=== PATIENT | female | born 1980 | race Two or more races ===

== ENCOUNTER 2016-11-23 10:14 | Inpatient (IN) | payer OTHER ==
[~2016-11-23] VITALS: Ht 162.6 cm; Wt 90.7 kg
[~2016-11-23 10:14] MED LIST: IBUP-1060 PO; OXYC-323 PO
[2016-11-23 11:21] LABS: BASO % 1 % (0-3); EOS % 1 % (0-3); HEMATOCRIT 34.5 % (36.0-47.0); HEMOGLOBIN 11.7 g/dL (12.0-15.5); LYMPH # 1.7 x10^3/uL (1.0-4.8); LYMPH % 24 % (24-48); MEAN CORPUSCULAR HEMOGLOBIN 31 pg (25-35); MEAN CORPUSCULAR HGB CONC 34 g/dL (31-37); MEAN CORPUSCULAR VOLUME 91 fL (79-100); MONO % 9 % (0-9); NEUT % 66 % (31-73); PLATELET COUNT 231 x10^3/uL (140-400); RED BLOOD COUNT 3.78 x10^6/uL (3.50-5.40); RED CELL DISTRIBUTION WIDTH 13.4 % (11.5-14.5); WHITE BLOOD COUNT 7.2 x10^3/uL (4.0-11.0)
[2016-11-23 11:34] LABS: CALCIUM 8.7 mg/dL (8.5-10.1); CREATININE 0.8 mg/dL (0.6-1.0); GFR 80.3; POTASSIUM 3.9 mmol/L (3.5-5.1)
[2016-11-23 11:39] LABS: ALBUMIN 3.8 g/dL (3.4-5.0); ALBUMIN/GLOBULIN RATIO 0.9 (1.0-1.7); TOTAL BILIRUBIN 0.6 mg/dL (0.2-1.0)
[2016-11-23 11:49] LABS: GLUCOSE,URINE NEGATIVE (NEG)
[2016-11-23 11:50] LABS: BILIRUBIN,URINE NEGATIVE (NEG)
[2016-11-23 11:51] LABS: BACTERIA,URINE FEW /HPF (0-FEW); NITRITE,URINE NEGATIVE (NEG); PROTEIN,URINE NEGATIVE (NEG-TRACE); RBC,URINE RARE /HPF (0-2); SQUAMOUS EPITHELIAL CELL,UR FEW /LPF; WBC,URINE OCC /HPF (0-4)
--- NOTE | 2016-11-23 12:28 | RAD ---
OB ultrasound less than 14 weeks to include transabdominal and transvaginal imaging 11/23/2016 Clinical history: First trimester with vaginal spotting. Technique: A real-time ultrasound examination of the pelvis was performed using the distended urinary bladder as a sonographic window. Additionally in an attempt to better evaluate the uterus and adnexa, a transvaginal ultrasound study was performed. Multiple images were obtained. Findings: The uterus is within normal limits in size and echogenicity. It measures 12 x 8 x 5 cm in longitudinal, transverse, and AP dimensions. No gestational sac is seen within the uterus. The endometrial echo complex measures 1.4 cm in thickness which is within normal limits. The right ovary is slightly prominent. The right ovary measures 5.8 x 5.1 x 4.7 cm in size. No focal abnormality is seen. The left ovary is normal in size and echogenicity. The Left ovary measures 3.7 x 2.2 x 2.4 cm in size. A small amount of free fluid is seen within the pelvic cul-de-sac. Impression: 1. No IUP is seen. 2. A small amount of free fluid is seen within the pelvis. 3. These ultrasound findings could be seen with a very early IUP, missed spontaneous or possibly due to an occult ectopic . Clinical correlation and correlation with the patient's serial beta hCG level is recommended.
[2016-11-23] MEDS ORDERED: METHOTREXATE SODIUM 50 MG/2 ML VIAL IM ONE ×2 (14:00→19:00)
--- NOTE | 2016-11-23 14:33 | PHYS DOC ---
Past Medical History Past Medical History: , Other Additional Past Medical Histor: ruptured ectopic Past Surgical History: , Tubal ligation, Other Additional Past Surgical Histo: BILAT TUBAL REVERSAL, ruptured ectopic Alcohol Use: None Drug Use: None Adult General Chief Complaint Chief Complaint: VAGINAL BLEEDING [facility] Patient is a 36 year old female 12 para 4, 7 miscarriages, 1 miscarriage was as result of an ectopic that ruptured who presents today with vaginal bleeding that has been going on for the last 2 weeks, patient states she is approximately 5 weeks . Patient states she notices trace amount of blood whenever she wipes herself for two weeks. She is also complaining of slight right flank pain that she states occurs only when she moves [id number]. Patient states she's been following up with Dr. Sanchez her CLIENT SUPPORT MANAGER. She states she saw Dr. Sanchez on Tuesday last week and he did an ultrasound in the office and informed her he could not find the , she states her beta-hCG was checked and was also low compared to normal values for [address] She states Dr[address] Sanchez informed her he'll be monitoring her lab findings as well as closely. She presents today stating she would like to be evaluated again. She denies this bleeding being more than what it's been for the last 2 weeks. Review of Systems Review of Systems Constitutional: Denies fever or chills [] Eyes: Denies change in visual acuity, redness, or eye pain [] HENT: Denies nasal congestion or sore throat [] Respiratory: Denies cough or shortness of breath [] Cardiovascular: No additional information not addressed in [facility] [] GI: Vaginal bleeding in . Right flank pain. : Denies dysuria or hematuria [] Musculoskeletal: Denies back pain or joint pain [] Integument: Denies rash or skin lesions [] Neurologic: Denies headache, focal weakness or sensory changes [] Endocrine: Denies polyuria or polydipsia [] Current Medications Current Medications Current Medications Medications (Trade) Dose Ordered Sig/Kin Start Time Stop Time Status Last Admin Dose Admin Methotrexate 100 mg 1X ONCE 11/23/16 14:00 11/23/16 14:17 DC Allergies Allergies Allergies Coded Allergies Type Severity Reaction Last Updated Verified No Known Drug Allergies 01/16/15 No Physical Exam Physical Exam Constitutional: Well developed, well nourished, no acute distress, non-toxic appearance. [] HENT: Normocephalic, atraumatic, bilateral external ears normal, oropharynx moist, no oral exudates, nose normal. [] Eyes: PERRLA, EOMI, conjunctiva normal, no discharge. [] Neck: Normal range of motion, no tenderness, supple, no stridor. [] Cardiovascular:Heart rate regular rhythm, no murmur [] Lungs & Thorax: Bilateral breath sounds clear to auscultation [] Abdomen: Bowel sounds normal, soft, no tenderness, no masses, no pulsatile masses. [] Pelvic exam External pelvic region appears normal, cervix could not be well-visualized. Trace amount of bright red blood in the vaginal vault, no CMT, no adnexal tenderness. Skin: Warm, dry, no erythema, no rash. [] Back: No tenderness, no CVA tenderness. [] Extremities: No tenderness, no cyanosis, no clubbing, ROM intact, no edema. [] Neurologic: Alert and oriented X 3, normal motor function, normal sensory function, no focal deficits noted. [] Psychologic: Affect normal, judgement normal, mood normal. [] Current Patient Data Vital Signs Vital Signs Date Time Temp Pulse Resp B/P Pulse Ox O2 Delivery O2 Flow Rate FiO2 11/23/16 10:16 97.9 75 16 129/82 100 Room Air 97.9 Lab Values Laboratory Tests Test 11/23/16 09:51 11/23/16 10:30 11/23/16 10:40 POC Urine HCG, Qualitative Hcg positive (Negative) Urine Collection Type Void Urine Color Yellow Urine Clarity Clear Urine pH 6.0 Urine Specific [place] 1.025 Urine Protein Negativemg/dL (NEG-TRACE) Urine Glucose (UA) Negativemg/dL (NEG) Urine Ketones (Stick) Negativemg/dL (NEG) Urine Blood Large (NEG) Urine Nitrite Negative (NEG) Urine Bilirubin Negative (NEG) Urine Urobilinogen Dipstick 1.0mg/dL (0.2 mg/dL) Urine Leukocyte Esterase Negative (NEG) Urine RBC Rare/HPF (0-2) Urine WBC Occ/HPF (0-4) Urine Squamous Epithelial Cells Few/LPF Urine Bacteria Few/HPF (0-FEW) Urine Mucus Mod/LPF White Blood Count 7.2x10^3/uL (4.0-11.0) Red Blood Count 3.78x10^6/uL (3.50-5.40) Hemoglobin 11.7g/dL (12.0-15.5) L Hematocrit 34.5% (36.0-47.0) L Mean Corpuscular Volume 91fL (79-100) Mean Corpuscular Hemoglobin 31pg (25-35) Mean Corpuscular Hemoglobin Concent 34g/dL (31-37) Red Cell Distribution Width 13.4% (11.5-14.5) Platelet Count 231x10^3/uL (140-400) Neutrophils (%) (Auto) 66% (31-73) Lymphocytes (%) (Auto) 24% (24-48) Monocytes (%) (Auto) 9% (0-9) Eosinophils (%) (Auto) 1% (0-3) Basophils (%) (Auto) 1% (0-3) Neutrophils # (Auto) 4.7x10^3uL (1.8-7.7) Lymphocytes # (Auto) 1.7x10^3/uL (1.0-4.8) Monocytes # (Auto) 0.7x10^3/uL (0.0-1.1) Eosinophils # (Auto) 0.1x10^3/uL (0.0-0.7) Basophils # (Auto) 0.0x10^3/uL (0.0-0.2) Maternal Serum HCG Beta Subunit 1661mIU/mL (0-6) H Sodium Level 140mmol/L (136-145) Potassium Level 3.9mmol/L (3.5-5.1) Chloride Level 104mmol/L (98-107) Carbon Dioxide Level 27mmol/L (21-32) Anion Gap 9 (6-14) Blood Urea Nitrogen 10mg/dL (7-20) Creatinine 0.8mg/dL (0.6-1.0) Estimated GFR (Cockcroft-Gault) 80.3 BUN/Creatinine Ratio 13 (6-20) Glucose Level 90mg/dL (70-99) Calcium Level 8.7mg/dL (8.5-10.1) Total Bilirubin 0.6mg/dL (0.2-1.0) Aspartate Amino Transferase (AST) 13U/L (15-37) L Alanine Aminotransferase (ALT) 16U/L (14-59) Alkaline Phosphatase 80U/L (46-116) Total Protein 8.0g/dL (6.4-8.2) Albumin 3.8g/dL (3.4-5.0) Albumin/Globulin Ratio 0.9 (1.0-1.7) L Lipase 127U/L (73-393) Laboratory Tests 11/23/16 10:40 Laboratory Tests 11/23/16 10:40 Microbiology 11/23/16 Wet Prep - Final, Complete EKG EKG [] Radiology/Procedures Radiology/Procedures []PROCEDURE: OB <14 WKS W/TV OB ultrasound less than 14 weeks to include transabdominal and transvaginal imaging 11/23/2016 Clinical history: First trimester with vaginal spotting. Technique: A real-time ultrasound examination of the pelvis was performed using the distended urinary bladder as a sonographic window. Additionally in an attempt to better evaluate the uterus and adnexa, a transvaginal ultrasound study was performed. Multiple images were obtained. Findings: The uterus is within normal limits in size and echogenicity. It measures 12 x 8 x 5 cm in longitudinal, transverse, and AP dimensions. No gestational sac is seen within the uterus. The endometrial echo complex measures 1.4 cm in thickness which is within normal limits. The right ovary is slightly prominent. The right ovary measures 5.8 x 5.1 x 4.7 cm in size. No focal abnormality is seen. The left ovary is normal in size and echogenicity. The Left ovary measures 3.7 x 2.2 x 2.4 cm in size. A small amount of free fluid is seen within the pelvic cul-de-sac. Impression: 1. No IUP is seen. 2. A small amount of free fluid is seen within the pelvis. 3. These ultrasound findings could be seen with a very early IUP, missed spontaneous or possibly due to an occult ectopic . Clinical correlation and correlation with the patient's serial beta hCG level is recommended. DICTATED and SIGNED BY: REID POLLARD MD DATE: 11/23/16 3589 CC: PEACE SANCHEZ MD; FAUSTO CHEATHAM APRN; NON,STAFF ~ Course & Med Decision Making Course & Med Decision Making Pertinent Labs and Imaging studies reviewed. (See chart for details) Patient is in the ED with vaginal bleeding in . She is a 10, Para 4,7 miscarriages (with one ruptured ectopic with removal of left fallopian tube). She states she has had vaginal bleeding for 2 weeks. She has already been seen by Dr. Sanchez who has been following up with her closely. She was seen by Dr. Sanchez on Tuesday. They did an ultrasound, patient states they could not find the baby. She presents today stating she is still bleeding. Positive urine hCG, beta-hCG 1661. Blood group O+. Hemoglobin 11.7 hematocrit 34.5 wet prep is positive for bacterial vaginosis, this should be followed up as an inpatient. OB ultrasound no IUP could be seen, small amount of free fluid is seen within the left pelvic cul-de-sac, radiologist mentions this ultrasound could be seen in a very early IUP, missed spontaneous or possibly due to occult ectopic 13:[address] Sanchez patient's CLIENT SUPPORT MANAGER. He stated this patient could have a possible ectopic . He states has been following up closely with patient and her Beta HCG were not going up as they should. He states we can give patient 2 choices, choice #1 patient can be given methotrexate and discharge. choice #2 patient can stay in the hospital and he will perform a procedure on patient he requested patient to be informed she might possibly lose her right fallopian tube which is her only fallopian tube if her procedures done. Information was given to patient. Patient herself states she has lost multiple pregnancies and would like to be given methotrexate and go home. 14:20 consulted with my supervising physician Dr. Hudson who came and talked to patient at length and recommended patient to stay in the hospital due to the risk of receiving methotrexate including the risk of ruptured ectopic. He felt this patient is a high risk especially with history of ruptured ectopic to be given methotrexate and be discharged. He felt the CLIENT SUPPORT MANAGER needed to come and talked to patient as well as administered methotrexate if he wants patient to have it otherwise we do not administer this medication in the ED. Patient accepted to stay. I did put a call out to Dr. Sanchez again. He has not called back yet. Dragon Disclaimer Dragon Disclaimer This electronic medical record was generated, in whole or in part, using a voice recognition dictation system. Departure Departure Impression: Primary Impression: Threatened Additional Impressions: Bacterial vaginosis Abdominal pain during Disposition: ADMITTED INPATIENT Condition: STABLE Referrals: PEACE SANCHEZ MD (PCP) Problem Qualifiers Additional Impressions: Abdominal pain during Trimester: first trimester Qualified Code: O26.891 - Other specified related conditions, first trimester MEREDITHRajiFAUSTO YOO Nov 23, 2016 14:33
[2016-11-23] MEDS ORDERED: ONDANSETRON PF 4 MG/2 ML VIAL. IV PRN (15:30)
[2016-11-23] MEDS ORDERED: MORPHINE SULFATE 2 MG/ML DISP.SYRIN. IV PRN (15:30)
[2016-11-23] MEDS ORDERED: IV NORMAL SALINE 1000ML BAG 1,000 ML IV ONE (15:30)
[2016-11-23 16:45] VITALS: BP 117/66
[2016-11-23 21:20] VITALS: BP 124/85
--- NOTE | 2016-12-27 18:50 | PDOC1 ---
OB - History Hx of Present Care: Limited Care Ultrasounds: Abnormal US findings (No IUP) Obstetrical Complications: Other (recurrent Abs) Medical Complications: Other Past Family/Social History * Past Medical, Surgical, Family and Obstetric Histories reviewed from chart. Rubella: Immune RPR/VDRL: Negative HBsAG: Unknown OB - Chief Complaint & HPI Date of Admission: Date of Admission: Nov 23, 2016 at 13:00 Chief Complaint/History : 12 Para: 4 EGA: 6wk Reason for admission: vaginal bleeding Admission Nurse Assessment Rev: Yes Problems: OB - Admission Exam Physical Exam HEENT: Normal, Nasal Mucosa Normal, Oropharynx Normal, Moist Membranes, Fontanelles Normal Heart: Regular Rate Lungs: Clear, Equal Abdomen: Gravid Extremities: Normal Pulses, No tenderness or swelling Reflexes: Normal Assessment/Plan Assessment/Plan , Most likely early ectopic Ck quants if falling offer MTX PEACE HORVATH MD December 27, 2016 18:50
== END 2016-11-23 21:39 | disposition home or self-care (01) | DRG 777 ==
LOC: ER 10:14 → 3 NORTH 13:00
PROVIDERS: ADMIT Specialist; ATTEND Specialist
DX: O00.90 Unspecified ectopic pregnancy without intrauterine pregnancy (principal); O20.0 Threatened abortion; N76.0 Acute vaginitis; Z3A.01 Less than 8 weeks gestation of pregnancy
CPT/HCPCS: 36415; 76801; 76817; 80053; 81001; 81025; 83690; 84702; 85027; 86850; 86900; 86901; 87491; 87591; 96372; Q0111; 99285-25